=== PATIENT | male | born 1985 | race Two or more races ===

== ENCOUNTER 2021-01-22 10:48 | Emergency (ER) | payer OTHER ==
[2021-01-22] MEDS ORDERED: IBUPROFEN 600 MG TABLET PO ONE (12:45)
[2021-01-22 13:57] LABS: AMPHET/METH SCREEN,URINE NEGATIVE (NEGATIVE); BARBITURATE SCREEN, URINE NEGATIVE (NEGATIVE); BENZODIAZEPINES SCREEN,URINE NEGATIVE (NEGATIVE); CANNABINOID SCREEN,URINE NEGATIVE (NEGATIVE); COCAINE SCREEN,URINE NEGATIVE (NEGATIVE); METHADONE SCREEN, URINE NEGATIVE (NEGATIVE); OPIATE SCREEN,URINE NEGATIVE (NEGATIVE)
[2021-01-22 14:02] LABS: PHENCYCLIDINE SCREEN,URINE NEGATIVE (NEGATIVE)
[2021-01-22 14:15] VITALS: BP 119/75
== END 2021-01-22 14:41 ==
LOC: EMS 10:52
DX: R51.9 Headache, unspecified (principal); G89.29 Other chronic pain
CPT/HCPCS: 99283

== ENCOUNTER 2021-01-23 09:20 | Emergency (ER) | payer OTHER ==
[~2021-01-23] VITALS: Ht 160 cm; Wt 63.6 kg
[2021-01-23 09:38] VITALS: BP 120/82
[2021-01-23] MEDS ORDERED: IBUPROFEN 600 MG TABLET PO ONE (10:00)
[2021-01-23] MEDS ORDERED: GABAPENTIN 300 MG CAPSULE PO ONE (10:00)
[2021-01-23] MEDS ORDERED: BACLOFEN 10 MG TABLET PO ONE (10:00)
[2021-01-23] MEDS ORDERED: AMITRIPTYLINE HCL 75 MG TABLET PO ONE (10:15)
== END 2021-01-23 11:33 | disposition left against medical advice (07) ==
LOC: EMS 09:20 → EDUNIT# 09:20 → EMS 11:33
DX: R51.9 Headache, unspecified (principal); G89.4 Chronic pain syndrome; F11.90 Opioid use, unspecified, uncomplicated
CPT/HCPCS: 99284; Z7502; Z7610